=== PATIENT | female | born 1985 | race Caucasian/White ===

== ENCOUNTER 2017-05-04 19:36 | Inpatient (IN) | payer SELFPAY ==
[2017-05-04] MEDS ORDERED: LR 500 ML IV ONE (20:01)
[2017-05-04] MEDS ORDERED: ceFAZolin 2 GM/DEXTROSE 100 ML IV ONE (20:01)
[2017-05-04] MEDS ORDERED: CITRIC ACID/SODIUM CITRATE 30 ML UDCUP PO ONE (20:01)
[2017-05-04] MEDS ORDERED: CITRIC ACID/SODIUM CITRATE 30 ML UDCUP ONE (20:09)
[2017-05-04] MEDS ORDERED: OXYTOCIN 10 UNIT/ML VIAL ONE (20:10)
[2017-05-04] MEDS ORDERED: LIDOCAINE 1% 300 MG/30 ML SDV ONE (20:10)
[2017-05-04] MEDS ORDERED: MISOPROSTOL 200 MCG TAB ONE (20:11)
[2017-05-04] MEDS ORDERED: fentaNYL 100 MCG/2 ML INJ ONE (20:16)
[2017-05-04 20:20] LABS: % IMMATURE GRANULYOCYTES 0.7 % (0.0-1.1); ABSOLUTE IMMATURE GRANULOCYTES 0.14 10^3/uL (0.00-0.10); ADD DIFF? NO; ADD MORPH? NO; ADD SCAN? NO; ATYPICAL LYMPHOCYTE FLAG 0 (0-99); FRAGMENT RBC FLAG 0 (0-99); HEMATOCRIT 40.8 % (38.0-47.0); HEMOGLOBIN 14.5 g/dL (12.6-16.3); LEFT SHIFT FLG 0 (0-99); LIPEMIA HEMOLYSIS FLAG 90 (0-99); MEAN CELL HEMOGLOBIN 30.7 pg (27.9-34.1); MEAN CELL HEMOGLOBIN CONCENTR. 35.5 g/dL (32.4-36.7); MEAN CELL VOLUME 86.4 fL (81.5-99.8); MEAN PLATELET VOLUME 10.4 fL (8.7-11.7); PLATELET CLUMPS FLAG 0 (0-99); PLATELET COUNT 206 10^3/uL (150-400); RED BLOOD CELL COUNT 4.72 10^6/uL (4.18-5.33); RED CELL DISTRIBUTION WIDTH 12.8 % (11.5-15.2)
[2017-05-04] MEDS ORDERED: LR 1,000 ML IV SCH (20:30)
--- NOTE | 2017-05-04 20:39 | GHP ---
[f rep st] HISTORY AND PHYSICAL DATE OF ADMISSION: 05/04/2017 CHIEF COMPLAINT: Labor and breech presentation. HISTORY OF PRESENT ILLNESS: The patient is a healthy 31-year-old 1, para 0 at 39 weeks 5 days gestational age per her stated dates, who was laboring at home. She initially had regular painful contractions starting around 2 p.m. and had spontaneous rupture of membranes. 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 Upon arrival to the hospital, it was confirmed the baby was indeed breech. The patient was 9-10 cm and 0 station. Per report, her has otherwise been uncomplicated. She is group B strep negative and has had normal lab work. Rh positive. Declined Tdap. Rubella immune. Hep B SAg neg. HIV neg. GC /CT neg. Normal first trimester CBC. PAST MEDICAL HISTORY: Denied. PAST SURGICAL HISTORY: Denied. MEDICATIONS: vitamins. ALLERGIES: None. FAMILY HISTORY: Noncontributory. SOCIAL HISTORY: She denies alcohol, tobacco and drug use. She is and here with her . REVIEW OF SYSTEMS: Negative apart from History of Present Illness. PHYSICAL EXAMINATION: VITAL SIGNS: Blood pressure in the 130 over 80s. Pulse is ranging from 80s to 110s when she is having contractions. Respirations normal. GENERAL: Awake, alert and oriented x3. No acute distress. LUNGS: Respirations unlabored, talking in full sentences. CARDIOVASCULAR: Regular rate and rhythm. EXTREMITIES: Warm and dry with normal pulses. ABDOMEN: Gravid consistent with term. Soft. Nontender. GENITOURINARY: Sterile vaginal exam, 9 cm dilated, celina breech presentation, 0 station. This was also confirmed on ultrasound. heart rate baseline 140s, moderate variability. LABORATORY DATA: Pending. ASSESSMENT AND PLAN: The patient is a 31-year-old 1, in active labor at term with a breech presentation. It is recommended to proceed with emergent delivery for this indication and she agrees. We reviewed the risks and benefits of surgery including pain, infection, bleeding, transfusion, injury , to other organs, and implications for future surgeries. She demonstrates good understanding and agrees to proceed. We will plan regional anesthesia. Labs have been sent including CBC and type and screen. Proceed with standard delivery and routine care. IV Ancef 2 g IV to be administered prior to procedure. /[id number]/MODL MTDD
[2017-05-04] MEDS ORDERED: METOCLOPRAMIDE 10 MG/2 ML VIAL ONE (20:42)
[2017-05-04] MEDS ORDERED: DEXAMETHASONE 4 MG/ML VIAL ONE ×2 (20:42)
--- NOTE | 2017-05-04 20:57 | PDANEPAE ---
ANE History of Present Illness breech ANE Patient History - Allergies Allergies/Adverse Reactions: No Known Allergies Allergy (Unverified 05/04/17 20:01) ANE Labs/Vital Signs - Labs Result Diagrams: 05/04/17 20:02 ANE Physical Exam - Airway Mallampati Score: Class 1 Mouth exam: normal dental/mouth exam - Pulmonary Pulmonary: no respiratory distress - Cardiovascular Cardiovascular: regular rate and rhythym - ASA Status ASA Status: I, E ANE Anesthesia Plan Anesthesia Plan: spinal
[2017-05-04] MEDS ORDERED: PHENYLEPHRINE HCL 100 MCG/ML SYR ONE (20:59)
[2017-05-04] MEDS ORDERED: OXYTOCIN/RINGERS LACTATE 1,000 ML IV SCH (21:30)
[2017-05-04] MEDS ORDERED: PROMETHAZINE HCL 25 MG/ML INJ IVP PRN (21:30)
[2017-05-04] MEDS ORDERED: SIMETHICONE 80 MG TAB CHEW PO PRN (21:30)
[2017-05-04] MEDS ORDERED: NALOXONE HCL 0.4 MG/ML INJ IVP PRN ×2 (21:30→21:45)
[2017-05-04] MEDS ORDERED: ACETAMINOPHEN 325 MG TAB PO PRN (21:30)
[2017-05-04] MEDS ORDERED: HYDROmorphONE/DILAUDID 6 MG/30 ML PCA IV PRN (21:30)
[2017-05-04] MEDS ORDERED: METOCLOPRAMIDE 10 MG/2 ML VIAL IVP PRN (21:30)
[2017-05-04] MEDS ORDERED: ONDANSETRON 4 MG/2 ML VIAL IVP PRN ×2 (21:30→21:45)
--- NOTE | 2017-05-04 21:35 | OBDEL ---
Info Type: Primary GBS+: No Operative Report - Delivery Pre-op Diagnoses: 39w5d. Uncomplicated care with home midwifery. Breech presentation noted at 8 cm dilation. Post-op Diagnoses: Same, s/p primary del Nulliparous Prior to Delivery: Yes Presentation at Delivery: Breech Procedure: Emergent Surgeon: Amber Del Rosario Alcoholic Counselor: Rubia Guevara Anesthesiologist: Aleks Thrasher L&D Analgesia/Anesthesia Type: Spinal Complications: None Findings: Viable male infant in celina breech presentation, APGARS 8/9. Normal uterus, tubes, and ovaries Specimen(s)/Path: Placenta EBL: 900 Data Benavidez Delivery Date: 05/04/17 RINA: 05/06/17 Gestational Age: 39 week(s) and 5 day(s) Sex of Infant: Male Score (1 Min): 8 Score (5 Min): 9 ICD10 Worksheet Patient Problems: Problems Problem Status Onset Breech presentation Acute Status post primary low transverse section Acute - ICD10 Problem Qualifiers (1) Breech presentation Qualifiers: Fetus number: F (2) Status post primary low transverse section
[2017-05-04] MEDS ORDERED: fentaNYL 100 MCG/2 ML INJ IVP PRN (21:45)
[2017-05-04] MEDS ORDERED: MEPERIDINE 25 MG/ML SYR IVP PRN (21:45)
[2017-05-04] MEDS ORDERED: LR 500 ML IV PRN (21:45)
[2017-05-04] MEDS ORDERED: HYDROmorphONE/DILAUDID 1 MG/ML SYR IVP PRN (21:45)
[2017-05-04] MEDS ORDERED: OXYCODONE/APAP 5/325 TAB PO PRN (21:45)
[2017-05-04] MEDS ORDERED: ACETAMINOPHEN 500 MG TAB PO PRN (21:45)
[2017-05-04] MEDS ORDERED: HYDROCODONE/APAP 5/325 TAB PO PRN (21:45)
--- NOTE | 2017-05-04 21:47 | POSTANESTH ---
Post Anesthetic Evaluation Respiratory Status: Normal, Stable Level of Consciousness/Mental Status: Can Participate in Eval Pain Control: Adequate, Prn Tx Ordered Nausea/Vomiting Control: Adequate, Prn Tx Ordered Complications Possibly Related to Anesthesia: None Noted
[2017-05-04] MEDS: KETOROLAC 30 MG/1 ML SDV IVP SCH (23:18)
[2017-05-05] MEDS: HYDROCODONE/APAP 5/325 TAB PO PRN ×5 (01:39→20:03)
[2017-05-05] MEDS: KETOROLAC 30 MG/1 ML SDV IVP SCH ×3 (05:14→18:24)
[2017-05-05 06:34] LABS: HEMATOCRIT 33.9 % (38.0-47.0); HEMOGLOBIN 11.9 g/dL (12.6-16.3); MEAN CELL HEMOGLOBIN 30.5 pg (27.9-34.1); MEAN CELL HEMOGLOBIN CONCENTR. 35.1 g/dL (32.4-36.7); MEAN CELL VOLUME 86.9 fL (81.5-99.8); RED BLOOD CELL COUNT 3.9 10^6/uL (4.18-5.33)
--- NOTE | 2017-05-05 08:36 | GOP ---
[f rep st] OPERATIVE REPORT DATE OF OPERATION: 05/04/2017 SURGEON: Amber Del Rosario MD INTERACTIVE DIGITAL MEDIA SPECIALIST: BOAZ Pino ANESTHESIA: Spinal. ANESTHESIOLOGIST: Aleks Thrasher MD PREOPERATIVE DIAGNOSIS: 1, para 0, at 39 weeks 5 days; active labor at 9 cm dilation; breech presentation. POSTOPERATIVE DIAGNOSIS: 1, para 0, at 39 weeks 5 days; active labor at 9 cm dilation; breech presentation. PROCEDURE PERFORMED: Primary low transverse delivery. FINDINGS: Viable male in celina breech presentation with Apgars of 8 and 9. Normal bilateral tubes and ovaries. ESTIMATED BLOOD LOSS: 900 mL. 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 She was laboring at home with a planned home delivery, and it was determined at 8-9 cm that she had a breech presentation. She was transferred to the hospital for further care. It was recommended to undergo an emergent primary delivery to which she agreed. We reviewed the risks and benefits in detail, and she consented to the procedure. DESCRIPTION OF PROCEDURE: The patient was brought to the operating room, and a time-out was performed. Spinal anesthetic was placed. She was prepped and draped in the normal sterile fashion in supine position with a leftward tilt and a An catheter running. A final time-out was performed. A Pfannenstiel incision was made with a scalpel and was carried down to the fascia. The fascia was extended sharply bilaterally. The fascia was tented up superiorly and was dissected bluntly and sharply off the underlying rectus muscles. The same was performed inferiorly. The rectus muscles were , and the peritoneum was entered sharply and then bluntly stretched. The bladder blade was placed, and a bladder flap was created sharply and digitally. A low transverse incision was made with a scalpel and was extended bluntly. The breech was delivered, and the remainder of the baby was delivered in normal fashion without complication. Delayed cord clamping was performed. Cord was doubly clamped and cut, and the baby was handed off to the waiting provider. Cord gas was collected. IV Pitocin was started. The placenta was delivered easily with fundal massage. The uterus was exteriorized and cleaned of all clot and debris. The incision was closed with a running locked stitch of 0 Monocryl. A secondary stitch was performed with the same suture, creating an imbricating layer. The uterus was returned to the abdomen at this time. The gutters were swabbed. Additional cautery was performed along some oozing serosal edges at the incision. The subfascial spaces were inspected. The rectus muscles were inspected. The fascia was closed with 0 Vicryl in a running fashion. The subcutaneous tissues were irrigated, and hemostasis was ensured. The subcutaneous tissue was reapproximated with 3-0 chromic gut in a running fashion, and the skin was closed with 4-0 Monocryl. The patient tolerated the procedure well. Counts were correct x2. She received 2 g IV Ancef prior to the procedure. COMPLICATIONS: None. /[id number]/MODL MTDD
--- NOTE | 2017-05-05 08:55 | OBPP ---
Progress Note Assessment/Plan: Assessment: PPD#1 s/p pLTCS for breech Hgb appropriate VS appropriate Recovering well Records reviewed-Rh pos, Rub imm. Declines tdap Plan: Routine postop care Binder ambulate D/C torrez 05/05/17 08:54 Subjective: Feeling tired but overall well. Breakfast just arrived, feels hungry, no nausea. Pain controlled with IV toradol and norco tablets. Has dangled. Baby is latching. No concerns Objective: 05/05/17 06:25 Patient ABO/Rh A POSITIVE 05/04/17 20:02 Temp Pulse Resp BP Pulse Ox 36.6 C 81 17 105/70 95 05/05/17 08:00 05/05/17 08:00 05/05/17 08:00 05/05/17 08:00 05/05/17 08:00 Gen: NAD, alert, awake Resp: unlabored CV: RRR Abd: soft, minimally tender, nondistended Bandage: clean/dry Uterus: firm below U Ext: SCDs in place torrez catheter with clear urine, adequate output
[2017-05-05] MEDS: DOCUSATE SODIUM 100 MG CAP PO PRN (20:03)
[2017-05-06] MEDS: IBUPROFEN 600 MG TAB PO PRN ×4 (00:19→18:57)
[2017-05-06] MEDS: HYDROCODONE/APAP 5/325 TAB PO PRN ×5 (04:15→22:43)
[2017-05-06] MEDS: DOCUSATE SODIUM 100 MG CAP PO PRN ×2 (09:31→22:43)
--- NOTE | 2017-05-06 10:04 | SOAPPROG ---
SOAP Progress Note Assessment/Plan: Assessment: 31 yo s/p ltcs for breech, pod 2, doing well. Plan: 05/06/17 10:03 Routine postop care. Rh +. Plan on discharge tomorrow. Subjective: 31 yo s/p ltcs for breech, pod 2, doing well. Objective: Vital Signs Temp Pulse Resp BP Pulse Ox 36.8 C 70 15 106/69 94 05/06/17 08:10 05/06/17 08:10 05/06/17 08:10 05/06/17 08:10 05/06/17 08:10 Laboratory Results 05/05/17 06:25 05/05/17 05/06/17 05/07/17 05:59 05:59 05:59 Intake Total 2000 1400 Output Total 1550 2650 Balance 450 -1250 Physical Exam - Physical Exam General Appearance: no apparent distress Respiratory: lungs clear Cardiac/Chest: regular rate, rhythm Abdomen: non-tender Skin: warm/dry Extremities: non-tender Neuro/Psych: alert ICD10 Worksheet Patient Problems: Problems Problem Status Onset Breech presentation Acute Status post primary low transverse section Acute
[2017-05-06 17:08] VITALS: RESP 16
[2017-05-07] MEDS: IBUPROFEN 600 MG TAB PO PRN ×2 (03:07→09:23)
[2017-05-07] MEDS: HYDROCODONE/APAP 5/325 TAB PO PRN ×3 (03:12→11:59)
[2017-05-07 06:33] VITALS: O2SAT 92
[2017-05-07 08:49] VITALS: BP 120/82; PULSE 75; TEMP 98.1
[2017-05-07] MEDS: DOCUSATE SODIUM 100 MG CAP PO PRN (09:22)
--- NOTE | 2017-05-07 12:52 | OBGCSDC ---
General Delivery Information - General Info : 1 Para: 0 Abortions: 0 Delivery Physician/CNM: Amber Del Rosario Admission Date: 05/04/17 Labs: Patient ABO/Rh A POSITIVE 05/04/17 20:02 Hct 33.9 % (38.0-47.0) L 05/05/17 06:25 Vaginal - Diagnosis Presentation at Delivery: Breech - Operations/Procedures L&D Analgesia/Anesthesia Type: Spinal - Delivery Number of Prior Sections: 0 Indications for Current Section: Breech Type: Primary Surgical Procedures: Unscheduled Intra-op Complications: None EBL: 900 L&D Analgesia/Anesthesia Type: Spinal - Hospital Course Antepartum: Low risk first with change management group. Was laboring at home until 9 cm when found to be breech and transferred to hospital. She was agreeable to delivery. Rh positive Intrapartum: Uncomplicated primary low transverse delivery : Routine pp care. Declines tdap Data Benavidez Delivery Date: 05/04/17 Delivery Time: 20:43 RINA: 05/06/17 Gestational Age: 40 week(s) and 1 day(s) Sex of Infant: Male [place] Weight (gm): 3466 kg Score (1 Min): 8 Score (5 Min): 9 Discharge Information - Discharge Information Discharge Medications: Hydrocodone, Ibuprofen Condition: Good Instruction/Follow Up: Two Weeks Discharge Physician/CNM: Amber Del Rosario
== END 2017-05-07 14:50 | disposition home or self-care (01) | DRG 766 ==
LOC: FLD 19:36 → OBSVTOIN 19:36 → FOB 23:43
PROVIDERS: ADMIT Obstetrics & Gynecology; ATTEND Obstetrics & Gynecology
PROC: 10D00Z1 Extraction of Products of Conception, Low, Open Approach (ICD-10-PCS; principal; 2017-05-04)
DX: O32.1XX0 Maternal care for breech presentation, not applicable or unspecified (principal); Z37.0 Single live birth; Z3A.40 40 weeks gestation of pregnancy
CPT/HCPCS: J0690; J1100; J1885; J2370; J2550; J2765; J3010

== ENCOUNTER → 2018-02-11 | Outpatient (CLI) | payer OTHER | LOC: BMCIMAGING 12:56 | PROVIDERS: ATTEND Nurse Practitioner | DX: R10.2 Pelvic and perineal pain (principal) ==